=== PATIENT | male | born 1965 | race Caucasian/White ===

== ENCOUNTER 2024-10-12 19:20 | Emergency (ER) | payer MEDICAID ==
[2024-10-12] MEDS: Acetaminophen 325 MG Tab PO ONE (19:45)
== END 2024-10-12 22:00 | disposition home or self-care (01) ==
LOC: VM.ED 19:20
DX: R11.2 Nausea with vomiting, unspecified (principal)
CPT/HCPCS: 87428-QW; 99283; 99284